=== PATIENT | female | born 1980 | race Caucasian/White ===

== ENCOUNTER 2016-06-24 20:53 | Emergency (ER) ==
[2016-06-24] MEDS ORDERED: CLINDAMYCIN IM ONE (22:05)
[2016-06-24] MEDS ORDERED: XYLOCAINE 1% INJ ONE (22:06)
[2016-06-24] MEDS ORDERED: MARCAINE 0.5% INJ ONE (22:06)
[2016-06-24] MEDS ORDERED: MARCAINE 0.5% PF ONE (22:08)
[2016-06-24] MEDS ORDERED: XYLOCAINE-MPF 1% ONE (22:09)
--- NOTE | 2016-06-24 22:28 | PROVIDER DOCUMENTATION ---
HPI-EENT General <Dustin Edwards - Last Filed: 06/24/16 22:46> - General Source: patient - History of Present Illness-EENT General EE Location: reports: facial, dental Quality of Pain: reports: aching, sharp, throbbing Severity: reports: moderate Onset/Duration: reports: 1 week ago Timing: reports: still present Prearrival Treatment: Initiated no prearrival treatment Associated Symptoms: reports: facial pain/swelling, tooth pain Locality of Occurance: Home Similar Symptoms Previously?: No Recently seen or treated by another doctor?: No - Throat/Dental Throat/Dental Problem Symptoms: reports: toothache, swelling of jaw/face Throat/Dental Problem Context: reports: dental decay, fractured tooth Recently seen a dentist or have an appointment?: No <Jazmin Alcala - Last Filed: 06/24/16 23:57> - General Chief Complaint: Mouth Pain Stated Complaint: ABSCESS Time Seen by Provider: 06/24/16 22:00 Allergies/Adverse Reactions: Patient Allergies Allergy/AdvReac Type Severity Reaction Status Date / Time No Known Allergies Allergy Verified 06/24/16 21:04 Home Medications: Home Medication List Medication Instructions Recorded Confirmed Last Taken Type Amoxicillin/Potassium Clav 1 each PO BID #20 tablet 06/24/16 Unknown Rx [Augmentin 875-125 Tablet] Ketorolac [Toradol] 10 mg PO Q8H PRN PRN #14 tablet 06/24/16 Unknown Rx - History of Present Illness-[facility] General Nature of Presenting Problem: PT IS A 36YOF PRESENTING TO THE ED C/O RIGHT UPPER MOLAR ABSCESS. PT STATES SHE HAS HAD PAIN FOR A WEEK NOW. SHE STATES BROKE THE TOOTH 6MTHS AGO AND HASN'T HAD IT REPAIRED. NOW SHE HAS SWELLING TO THE RIGHT SIDE OF HER FACE AND STATES SHE CAN TASTE THE ABSCESS. PT DENIES FEVER OR ANY OTHER COMPLAINTS AT THIS TIME (Jazmin Alcala) Review of Systems - Adult - REVIEW OF SYSTEMS - ADULT Constitutional: reports: no symptoms reported Eyes: reports: no symptoms reported Ears, Nose, Mouth & Throat: reports: see HPI, mouth/dental pain, mouth swelling . denies: throat swelling Cardiovascular: reports: no symptoms reported Respiratory: reports: no symptoms reported Gastrointestinal: reports: no symptoms reported Genitourinary: reports: no symptoms reported Musculoskeletal: reports: no symptoms reported Integumentary: reports: no symptoms reported Neurological: reports: no symptoms reported Psychiatric: reports: no symptoms reported Endocrine: reports: no symptoms reported Hematologic/Lymphatic: reports: no symptoms reported Allergic/Immunologic: reports: no symptoms reported All Other Systems: Reviewed and Negative <Jazmin Alcala - Last Filed: 06/24/16 23:57> Past History - Adult - PAST MEDICAL HISTORY-ADULT Review of Records: reports: Old Records Reviewed, Nursing Assessment Review, Medications Reviewed, Social history reviewed & non-contributory. Major Childhood Illnesses: reports: denies history Cardiovascular: reports: denies history Respiratory: reports: denies history Gastrointestinal: reports: denies history Obstetrical/Gynecological: reports: denies history Genitourinary: reports: denies history Musculoskeletal: reports: denies history Neurological: reports: denies history Endocrine/Immune: reports: denies history Other Conditions: reports: denies history - IMMUNIZATION STATUS Childhood Immunizations: See Nurse Assessment Flu Vaccine: See Nurse Assessment - FAMILY HISTORY Family History: reviewed, not pertinent - SOCIAL HISTORY Smoking: cigarettes, less than 1 pack/day Provider spent 3-5 mins advising pt. on dangers of tobacco.: Discussed manners to quit use, and f/u contacts for add'l counseling. Substance Use: none/never, denies Alcohol Use Frequency: never Living Situation: family <Jazmin Alcala - Last Filed: 06/24/16 23:57> Physical Exam- EENT - Physical Exam EENT Initial Vital Signs Reviewed: Yes General Appearance: appears well, alert, no apparent distress Eye Exam: bilateral eye: normal inspection, PERRL, EOMI Ear Exam: bilateral ear: auricle normal, canal normal, TM normal Nasal Exam: normal inspection. negative: active bleeding, discharge, dried blood, foreign body, sinus tenderness, other Throat Exam: pharynx normal, dental tenderness, maxillary swelling. negative: trismus Neck: non-tender, full range of motion. negative: supple, normal inspection, Brudzinski's sign, carotid bruit, C-spine tenderness, limited range of motion, lymphadenopathy, meningismus, trachial deviation, tender lateral, tender midline , thyromegaly, other Respiratory: chest non-tender, lungs clear, normal breath sounds, no pleuratic chest pain, no respiratory distress, no accessory muscle use. negative: respiratory distress, decreased breath sounds, accessory muscle use, crackles, rales, rhonchi, stridor, wheezing, dull on percussion, prolonged expiration, pain on inspiration, plerual rub, retractions, splinting, decreased rate, increased rate, crepitus, other Cardiovascular: normal peripheral pulses, regular rate, rhythm, no edema, no gallop, no JVD, no murmur. negative: JVD, bradycardia, tachycardia, diastolic murmur, systolic murmur, gallop/S3, gallop/S4, extra beats, friction rub, irregularly irregular, PMI displaced laterally, other Abdominal Exam: normal bowel sounds, non tender, soft, no organomegaly, no pulsatile mass. negative: abdominal bruit, abnormal bowel sounds, distended, guarding, rigid, rebound, tenderness, hernia, mass, hepatomegaly, spleenomegaly , McBurney's point tenderness, Mills's sign, obturator sign, prominent aortic pulsations, psoas, Rovsing's sign, other Lymphatic: no adenopathy. negative: axilla node tender, cervical node tenderness, inguinal node tender, enlargement, striations, streaking, other Back Exam: normal inspection, no CVA tenderness, no vertebral tenderness. negative: CVA tenderness, decreased range of motion, ecchymosis, kyphosis, lordosis, muscle spasm, scoliosis, swelling, vertebral tenderness, other Extremity: normal range of motion, non-tender, normal gait, normal inspection, no pedal edema, no calf tenderness, normal capillary refill. negative: pelvis stable, abnormal NV exam, calf tenderness, deformity, erythema, inflammation, joint effusion, pulse deficit, pedal edema, slow capillary refill, swelling, tenderness, other Integumentary: normal color, normal turgor, warm/dry. negative: abrasion(s), blanching, cyanosis, diaphoresis, decubitus, dependent lividity, ecchymosis, embolic lesions, erythema, signs of IVDA, jaundice, laceration(s), mottled, pallor, petechiae, purpura, rash, swelling, tenderness, warm, zoster-like rash, other Neurologic: grossly normal Psych/Mental Status: oriented x 3 <Dustin Edwards - Last Filed: 06/24/16 22:46> Progress <Dustin Edwards - Last Filed: 06/24/16 22:46> <Jazmin Alcala - Last Filed: 06/24/16 23:57> - PLAN OF CARE/RESULTS Progress/Plan/Lab Results: Orders Category Date Time Status Bupivacaine 0.5% [Marcaine 0.5%] Med 06/24/16 22:06 Discontinued 50 ml INJ NOW ONE Bupivacaine Pf 0.5% [Marcaine 0.5% Pf] Med 06/24/16 22:08 Discontinued 10 ml .ROUTE .STK-MED ONE Clindamycin Med 06/24/16 22:05 Discontinued 600 mg IM NOW ONE Lidocaine 1% Pf [Xylocaine-Mpf 1%] Med 06/24/16 22:09 Discontinued 30 ml .ROUTE .STK-MED ONE Lidocaine 1% [Xylocaine 1%] Med 06/24/16 22:06 Discontinued 20 ml INJ NOW ONE Vital Signs - 24 hr 06/24/16 06/24/16 20:59 22:42 Temperature 97.8 F 98.4 F Pulse Rate 106 H 97 H Respiratory 18 18 Rate Blood Pressure 125/75 132/89 O2 Sat by Pulse 100 99 Oximetry (Jazmin Alcala) Procedures - ENT PROCEDURES Nerve Block: Dental Anesthetic: 0.5%, 1%, Lidocaine/Xylocaine, Bupivicaine/Marcaine Volume of Anesthetic (ml's): 7 Procedure Comment: Pt tolerated well. <Dustin Edwards - Last Filed: 06/24/16 22:46> Departure - Departure Time of Disposition Order: 22:25 Certified Medical Emergency: Emergent <Dustin Edwards - Last Filed: 06/24/16 22:46> - Departure Time of Disposition Order: 23:57 Certified Medical Emergency: Emergent <Jazmin Alcala - Last Filed: 06/24/16 23:57> - Departure DIAGNOSIS: Dental abscess Disposition: HOME 01 Condition: Stable Additional Instructions: Follow up with dentist as soon as can. If swelling continues to spread throughout face come back to the emergency department if unable to get into see dentist. ED Follow Up Instructions: You have been treated by a care provider in the Emergency Department. These instructions are being provided to you so you can have an understanding of how to care for yourself upon discharge. Upon discharge from the Emergency Department, you are responsible for making arrangements for follow-up care by a physician of your choice. Take all prescribed medications as directed. Return to the Emergency Department immediately for any new or worsening symptoms. You may call the Physician Referral phone number at [phone] to obtain a list of Physicians who are taking new patients. Prescriptions: Amoxicillin/Potassium Clav [Augmentin 875-125 Tablet] 1 each PO BID #20 tablet Ketorolac [Toradol] 10 mg PO Q8H PRN PRN #14 tablet PRN Reason: Pain Referrals: Philippe Latif MD [STAFF PHYSICIAN] - None,PCP [Primary Care Provider] - Forms: Return to School/Parent Work Instructions: Amoxicillin capsules or tablets, Dental Abscess, Ketorolac tablets Attestation - Physician/ KATHLEEN Attestation Patient care was provided by Advanced Practice Provider:: Yes Advanced Practice Provider:: Dustin Edwards Advanced Practice Provider documentation review:: The Mid-level provider documentation, treatment plan and medical decision making was reviewed by the physician who agrees with all treatment and medical decision making by the [facility]. <Dustin Edwards - Last Filed: 06/24/16 22:46> - Scribe Verification/Attestation Scribe:: Jazmin Alcala Acting as Scribe for:: Dustin Edwards Scribe documention review:: This chart was documented by a scribe and accurately reflects the service the provider performed and the decisions made by the provider. <Jazmin Alcala - Last Filed: 06/24/16 23:57> Physician Attestation - Physician Attestation I, the provider, attest to the following statement:: Santana Liang Physician documentation Attestation:: This documentation recorded by the scribe accurately reflects the service I personally performed and the decisions made by me. <Jazmin Alcala - Last Filed: 06/24/16 23:57>
[2016-06-24 22:43] VITALS: BP 132/89
== END 2016-06-24 22:43 | disposition home or self-care (01) ==
LOC: P.ED 20:53
DX: K04.7 Periapical abscess without sinus (principal); K02.9 Dental caries, unspecified; S02.5XXA Fracture of tooth (traumatic), initial encounter for closed fracture; K08.89 Other specified disorders of teeth and supporting structures; R22.0 Localized swelling, mass and lump, head; F17.210 Nicotine dependence, cigarettes, uncomplicated; Z71.6 Tobacco abuse counseling
CPT/HCPCS: 96372; S0020; S0077

== ENCOUNTER 2016-07-07 14:16 | Emergency (ER) ==
[2016-07-07 14:21] VITALS: BP 125/72
--- NOTE | 2016-07-07 14:37 | PROVIDER DOCUMENTATION ---
HPI-Musculoskeletal Pain/Inj - GENERAL Chief Complaint: Extremity Pain Stated Complaint: bila leg pain,neck pain Time Seen by Provider: 07/07/16 14:27 Source: patient - HX OF PRESENT ILLNESS-MUSKULOSKELTAL Nature of Presenting Problem: D/O LEFT LATERAL NECK PAIN Vital Signs Temp Pulse Resp BP Pulse Ox 07/07/16 14:20 98.4 F 103 H 16 125/72 100 No Known Allergies Allergy (Verified 07/07/16 14:39) No Home Medications 07/07/16 Laboratory 07/07/16 14:48 Urine Source CLEAN CATCH Urine Color YELLOW Urine Turbidity CLEAR Urine pH 6.0 Ur Specific [place] 1.035 Urine Protein 30 A Ur Glucose (Stick) NEGATIVE Ur Ketones (Stick) TRACE A Urine Blood SMALL A Urine Nitrite NEGATIVE Urine Bilirubin NEGATIVE Urobilinogen Dipstick 2 A Urine Leukocytes NEGATIVE Urine WBC (Auto) <10 Urine RBC (Auto) 10-20 A U Epithel Cells (Auto) <10 Urine Bacteria (Auto) NEGATIVE Quality of Pain: reports: aching, tightness Severity in ED: mild Onset/Duration: 3 days ago Timing: still present Modifying Factors: improves with: nothing Any recent injury?: No Locality of Occurance: Home Similar Symptoms Previously?: No Recently seen or treated by another doctor?: No - BACK & NECK PAIN/INJURY Back/Neck Pain Location: reports: C-spine Back/Neck Pain Radiation: reports: shoulders Context / Method of Injury: reports: unknown Associated Symptoms: reports: denies symptoms History of Chronic Neck or Back Pain?: No Review of Systems - Adult - REVIEW OF SYSTEMS - ADULT Constitutional: reports: no symptoms reported Eyes: reports: no symptoms reported Ears, Nose, Mouth & Throat: reports: no symptoms reported Cardiovascular: reports: no symptoms reported Respiratory: reports: no symptoms reported Gastrointestinal: reports: no symptoms reported Genitourinary: reports: no symptoms reported Musculoskeletal: reports: see HPI Neurological: reports: no symptoms reported Psychiatric: reports: no symptoms reported Endocrine: reports: no symptoms reported Hematologic/Lymphatic: reports: no symptoms reported Allergic/Immunologic: reports: no symptoms reported All Other Systems: Reviewed and Negative Past History - Adult - PAST MEDICAL HISTORY-ADULT Review of Records: reports: Nursing Assessment Review, Medications Reviewed Major Childhood Illnesses: reports: denies history Cardiovascular: reports: denies history Respiratory: reports: denies history Gastrointestinal: reports: denies history Obstetrical/Gynecological: reports: denies history Genitourinary: reports: denies history Musculoskeletal: reports: denies history Neurological: reports: denies history Endocrine/Immune: reports: denies history Other Conditions: reports: denies history - IMMUNIZATION STATUS Childhood Immunizations: See Nurse Assessment Flu Vaccine: See Nurse Assessment - FAMILY HISTORY Family History: reviewed, not pertinent - SOCIAL HISTORY Smoking: less than 1 pack/day Provider spent 3-5 mins advising pt. on dangers of tobacco.: Discussed manners to quit use, and f/u contacts for add'l counseling. Substance Use: none/never Alcohol Use Frequency: never Living Situation: family Physical Exam-Injury Related - Physical Exam-Injury Related Initial Vital Signs Reviewed: Yes General Appearance: mild distress Immobilization?: negative: backboard, C-collar, applied in ED, applied [employer] Eyes: PERRL/EOMI, pink conjunctivae Head, Ears, Nose, Mouth & Throat: normocephalic/atraumatic, moist mucous membranes Neck: non-tender, full range of motion Respiratory: chest non-tender, lungs clear Cardiovascular: normal peripheral pulses, regular rate, rhythm, no edema Peripheral Pulses: radial (R): 3+, radial (L): 3+, dorsalis-pedis (R): 3+ (SKIN WARM AND DRY BILATERLA LE NO EDEMA), dorsalis-pedis (L): 3+ Abdominal Exam: normal bowel sounds Female Genitalia/Pelvic Exam: deferred Rectal Exam: deferred Back Exam: normal inspection Extremity: normal range of motion, non-tender Integumentary: normal color, warm/dry Neurologic: grossly normal Psych/Mental Status: normal mood/affect - Glascow Coma Score Best Eye Response (Nehemiah): (4) open spontaneously Best Verbal Response (Nehemiah): (5) oriented Best Motor Response ([place]): (6) obeys commands Progress - PLAN OF CARE/RESULTS Progress/Plan/Lab Results: Vital Signs Temp Pulse Resp BP Pulse Ox 07/07/16 14:20 98.4 F 103 H 16 125/72 100 No Known Allergies Allergy (Verified 07/07/16 14:39) No Home Medications 07/07/16 Laboratory 07/07/16 14:48 Urine Source CLEAN CATCH Urine Color YELLOW Urine Turbidity CLEAR Urine pH 6.0 Ur Specific [place] 1.035 Urine Protein 30 A Ur Glucose (Stick) NEGATIVE Ur Ketones (Stick) TRACE A Urine Blood SMALL A Urine Nitrite NEGATIVE Urine Bilirubin NEGATIVE Urobilinogen Dipstick 2 A Urine Leukocytes NEGATIVE Urine WBC (Auto) <10 Urine RBC (Auto) 10-20 A U Epithel Cells (Auto) <10 Urine Bacteria (Auto) NEGATIVE - XRAY 1 XRAY Study: C-Spine Impression: Normal Departure - Departure Time of Disposition Order: 16:08 DIAGNOSIS: Muscle spasm, Cervicalgia Disposition: HOME 01 Certified Medical Emergency: Emergent Condition: Stable Additional Instructions: TAKE PREDNISONE WITH FOOD. DO NOT WORK, DRIVE OR DRINK ALCOHOL AND TAKE MUSCLE RELAXER OR PAIN MEDICATION. INCREASE FLUIDS AND REST. FOLLOW UP WITH PCP FOR FURTHER EVALUATION AND MANAGEMENT. RETURN TO ER FOR ANY WORSENING SYMPTOMS. ED Follow Up Instructions: You have been treated by a care provider in the Emergency Department. These instructions are being provided to you so you can have an understanding of how to care for yourself upon discharge. Upon discharge from the Emergency Department, you are responsible for making arrangements for follow-up care by a physician of your choice. Take all prescribed medications as directed. Return to the Emergency Department immediately for any new or worsening symptoms. You may call the Physician Referral phone number at [phone] to obtain a list of Physicians who are taking new patients. Prescriptions: Cyclobenzaprine [Flexeril] 10 mg PO TID #20 tablet Methylprednisolone [Medrol Dosepak] 4 mg PO DIRECTED #1 package Hydrocodone/Acetaminophen [[place] 7.5-325 Tablet] 1 each PO Q6-8H PRN PRN #10 tablet PRN Reason: Pain
[2016-07-07 14:54] LABS: URINE MICRO REVIEW NEEDED? NO; URINE SOURCE CLEAN CATCH
[2016-07-07 15:00] LABS: BILIRUBIN URINE NEGATIVE (NEGATIVE); BLOOD URINE SMALL (NEGATIVE); COLOR YELLOW; GLUCOSE URINE NEGATIVE (NEGATIVE); LEUKOCYTES URINE NEGATIVE (NEGATIVE); NITRITE URINE NEGATIVE (NEGATIVE); PROTEIN URINE 30 mg/dL (NEGATIVE); SP GRAVITY URINE 1.035; TURBIDITY URINE CLEAR (CLEAR); UR EPITHELIAL CELLS <10 /HPF (<10); URINE BACTERIA NEGATIVE /HPF; URINE WBC <10 /HPF (<10); UROBILINOGEN URINE 2 mg/dL (NORMAL)
--- NOTE | 2016-07-07 16:03 | Diag Imaging Result Document ---
PROCEDURE NAME: CERVICAL SPINE COMPLETE - 07/07/2016 PLAIN RADIOGRAPH OF THE CERVICAL SPINE, 5 VIEWS: COMPARISON: None available. FINDINGS: There is no discrete fracture, subluxation, or intrinsic osseous lesion. The surrounding soft tissues are grossly unremarkable. IMPRESSION: Essentially unremarkable plain radiograph.
[2016-07-07] MEDS ORDERED: DECADRON IM ONE (16:08)
== END 2016-07-07 16:32 | disposition home or self-care (01) ==
LOC: ED 14:16
DX: M62.838 Other muscle spasm (principal); M54.2 Cervicalgia; M79.605 Pain in left leg; M79.604 Pain in right leg; M25.512 Pain in left shoulder; M25.511 Pain in right shoulder; F17.210 Nicotine dependence, cigarettes, uncomplicated; Z71.6 Tobacco abuse counseling
CPT/HCPCS: 72050; 81001